=== PATIENT | male | born 1990 | race American Indian/Alaskan Native ===

== ENCOUNTER 2017-06-16 18:33 | Emergency (ER) | payer OTHER, MEDICARE ==
[2017-06-16 19:05] VITALS: BP 139/86
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
[2017-06-16] MEDS ORDERED: FLEXERIL PO ONE (21:52)
[2017-06-16] MEDS ORDERED: MOTRIN PO ONE (21:52)
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
== END 2017-06-16 22:26 | disposition home or self-care (01) ==
LOC: ED 18:33
DX: M62.838 Other muscle spasm (principal); M54.2 Cervicalgia; I10 Essential (primary) hypertension; I82.409 Acute embolism and thrombosis of unspecified deep veins of unspecified lower extremity; Z88.8 Allergy status to other drugs, medicaments and biological substances; M06.9 Rheumatoid arthritis, unspecified; Z87.891 Personal history of nicotine dependence; F12.10 Cannabis abuse, uncomplicated
CPT/HCPCS: 70360; 82962; 99283

== ENCOUNTER 2017-12-06 21:32 | Emergency (ER) | payer MEDICAID, MEDICARE, OTHER | END 2017-12-06 22:40 | disposition left against medical advice (07) | LOC: ED 21:32 | DX: M62.838 Other muscle spasm (principal); Z53.21 Procedure and treatment not carried out due to patient leaving prior to being seen by health care provider ==